=== PATIENT | female | born 1990 | race Caucasian/White ===

== ENCOUNTER 2019-07-17 10:17 | Emergency (ER) | payer OTHER, SELFPAY ==
--- NOTE | ~2019-07-17 | CT_ITS ---
EXAMINATION: CT abdomen pelvis w con DATE: 07/17/2019 13:25 INDICATION: Abdominal pain. TECHNIQUE: Computed tomography (CT) of the abdomen and pelvis was performed with 100 mm Omnipaque 350 intravenous contrast. Automated exposure control and iterative reconstruction technique were employe d. The dose-length product was 1844.24 mGy-cm. COMPARISON: None. FINDINGS: The visualized portions of the lung bases demonstrate minimal atelectasis. No pleural effus ion. The heart size is normal. No pericardial effusion. The liver, gallbladder, spleen, pancreas, adr enal glands, and kidneys are normal. There is no urolithiasis. There are no dilated loops of bowel. T he appendix is normal. There are no pathologically enlarged lymph nodes. There is no free intraperito guillermo fluid. There is mild thoracic spondylosis. IMPRESSION: 1. No etiology for the patient's symptoms. Reviewed, dictated and finalized at location A. [employer]
[2019-07-17 10:21] VITALS: BP 126/72; PULSE 80; RESP 19; TEMP 36.4; O2SAT 100
--- NOTE | 2019-07-17 10:36 | ED.GIBLEED ---
HPI - GI Bleed General Chief complaint: GI Bleed Stated complaint: Hemroid Time Seen by Provider: 07/17/19 10:33 Source: patient and RN notes reviewed Mode of arrival: ambulatory Limitations: no limitations History of Present Illness HPI Narrative: A 29 y/o female presents to the ED with dark rectal bleeding beginning yesterday morning. She reports associated severe rectal pain, lower ABD pain, and lower back pain. She notes that she was constipated yesterday so she took some laxatives and stool softeners, and shortly after she had a dark BM and acutely developed rectal pain, lower ABD pain, and lower back pain. She denies anything alleviating or aggravating her symptoms. She also denies any fevers, chills, N/V, dysuria, hematuria, urinary frequency, or urinary retention. complaint: melena Onset (ago): day(s) (yesterday) Relieving factors: none Exacerbating factors: none Associated symptoms: abdominal pain (lower) and other (rectal pain, lower back pain, and constipation (resolved)) Treatments Prior to Arrival: none Related Data Allergies Allergy/AdvReac Type Severity Reaction Status Date / Time No Known Allergies Allergy Mild Verified 07/17/19 10:23 Review of Systems Review of Systems: All systems reviewed & are unremarkable except as noted in HPI and below Constitutional: Constitutional: Denies chills and Denies fever(s) Gastrointestinal: Gastrointestinal: Reports abdominal pain (lower), Reports melena, Reports constipation (resolved), Denies nausea, Denies vomiting and Reports other (rectal pain) Genitourinary: Genitourinary: Denies hematuria, Denies nocturia, Denies dysuria and Denies other (urinary retention) Musculoskeletal: Musculoskeletal: Reports back pain (lower) PMFSH Past Medical History Medical History (Updated 07/17/19 @ 14:03 by Rickie Rivera MD) Healthy female Surgical History Surgical History (Updated 07/17/19 @ 11:39 by Troy Strong) No history of previous surgery Social History Social History (Updated 07/17/19 @ 11:39 by Troy Strong) Smoking status: Unknown if ever smoked Gender identity (if verbalized by the patient): Female Exam Const: General: healthy appearing and no acute distress Nutritional Appearance: well nourished HENMT: Mouth: Yes lip normal and Yes moist mucous membranes Eyes: Conjunctivae: conjunctivae normal Pupils: Equal, round and reactive pupils present Resp: Effort & Inspection: normal respiratory effort Auscultation: clear to auscultation bilaterally Cardio: Rate: regular rate Rhythm: regular rhythm Heart sounds: no murmurs GI: Inspection: non-distended GI Palp: Yes Tenderness to palpation present (GI) (RLQ) Auscultation: normal bowel sounds Rectal Exam: No External hemorrhoid(s) present, No Anal fissure(s) present and other (rectal tenderness no erythema or induration) Back/Spine/Pelvis: Other: Full ROM. Skin: General skin exam: normal color, dry skin and other (warm) Neuro: General: patient oriented x3 (alert) Speech: normal speech Extrem: General: full ROM Psych: Mental Status: mental status grossly normal Affect: normal affect Course Vital Signs Vital signs: Vital Signs Temperature 36.4 C L 07/17/19 10:21 Pulse Rate 80 07/17/19 10:21 Respiratory Rate 19 07/17/19 10:21 Blood Pressure 126/72 07/17/19 10:21 Pulse Oximetry 100 07/17/19 10:21 Temperature 36.4 C L 07/17/19 10:21 Pulse Rate 63 07/17/19 14:57 Respiratory Rate 18 07/17/19 14:57 Blood Pressure 127/69 07/17/19 14:57 Pulse Oximetry 97 07/17/19 14:57 MDM - GI Bleed MDM Narrative Medical decision making narrative: Exam normal. No abscess or other pathology on CT. Unclear what her etiology is. Feeling better prior to discharge. Differential Diagnosis Differential diagnosis: Likely hemorrhoids, anal fissure and other (perirectal abscess) Medical Records Attestation: I reviewed the patient's medical records. Lab Data Attestation: I revi
[2019-07-17 11:07] LABS: Basophils Percent Auto 0.5 % (0.2-1.2); Eosinophils Absolute Auto 0.3 K/mm3 (0-0.3); Eosinophils Percent Auto 4.1 % (0-4.4); Hematocrit 36.4 % (37.0-47.0); Hemoglobin 11.8 g/dL (12.0-15.0); Immature Granulocyte Absolute 0.03 K/mm3 (0.00-0.031); Immature Granulocyte Percent A 0.4 % (0-0.5); Lymphocytes Absolute Auto 1.33 K/mm3 (0.9-3.2); Lymphocytes Percent Auto 16.5 % (18.3-44.2); Mean Corpuscular HGB Conc 32.4 g/dl (32-36); Mean Corpuscular Hemoglobin 28.9 pg (26-34); Mean Corpuscular Volume 89.2 fl (80-100); Mean Platelet Volume 10.7 fl (7.4-10.4); Monocytes Absolute Auto 0.4 K/mm3 (0.1-0.6); Monocytes Percent Auto 5.2 % (2.6-8.5); Neutrophils Absolute Auto 5.9 K/mm3 (1.3-6.7); Neutrophils Percent Auto 73.3 % (45.5-73.1); Platelet Count Result 248 k/mm3 (150-375); Red Blood Count 4.08 M/mm3 (4.2-5.4); Red Cell Distribution Width 13.8 % (11.5-14.5); White Blood Count 8.1 K/mm3 (4.5-10.0)
[2019-07-17] MEDS: MORPHINE SULFATE 4 MG/ML INJ 2 MG IV PUSH (11:16)
[2019-07-17 11:20] LABS: Alanine Aminotransferase 25 U/L (4-35); Albumin Level 4.1 g/dL (3.5-5.1); Alkaline Phosphatase 58 U/L (38-126); Aspartate Amino Transferase 33 U/L (14-36); Bilirubin,Total 0.8 mg/dL (0.2-1.3); Blood Urea Nitrogen 8 mg/dL (7-17); Calcium 8.9 mg/dL (8.4-10.2); Carbon Dioxide 29 mmol/L (22-30); Chloride 103 mmol/L (98-107); Estimated Glomerular Filt Rate > 60; Glucose 107 mg/dL (65-105); Lipase 23 U/L (23-300); Potassium 3.9 mmol/L (3.4-5.0); Sodium 136 mmol/L (137-145)
[2019-07-17 11:24] LABS: Prothrombin Time 12.8 Seconds (11.1-14.7)
[2019-07-17 11:25] LABS: Partial Thromboplastin Time 26.5 SECONDS (22.3-36.8)
[2019-07-17 11:58] VITALS: BP 116/81; PULSE 68; RESP 16; O2SAT 98
[2019-07-17 12:25] LABS: Add Urine Microscopic? YES; Appearance Urine Clear (Clear); Bacteria Urine Trace /hpf; Bilirubin Urine Negative (Negative); Blood Urine Negative (Negative); Color Urine Straw (Yellow); Glucose Urine UA Negative (Negative); Ketones Urine Trace mg/dL (Negative); Leukocyte Esterase Ur 1+ LEU/UL (Negative); Mucus Urine Rare /lpf; Nitrate Urine Negative (Negative); Protein Urine Negative (Negative); RBC Urine 0-2 /hpf (0-2); Specific Grav Ur 1.009 (1.001-1.035); Squamous Epithelial Cell Urine Many /hpf (Few); Urobilinogen Urine Negative mg/dL (<2.0)
[2019-07-17 14:57] VITALS: BP 127/69; PULSE 63; RESP 18; O2SAT 97
== END 2019-07-17 14:59 | disposition home or self-care (01) ==
PROVIDERS: Emergency Provider Emergency Medicine
DX: K62.89 Other specified diseases of anus and rectum (principal)
CPT/HCPCS: 36415; 74177; 80053; 81001; 81025; 83690; 85025; 85610; 85730; 87086; 87088; 96374; 99284; J2270; Q9967

== ENCOUNTER 2019-10-10 00:35 | Observation (INO) | payer OTHER, SELFPAY ==
--- NOTE | ~2019-10-10 | CT_ITS ---
EXAMINATION: CT brain wo con DATE: 10/10/2019 03:37 INDICATION: Unresponsive. Drug overdose. TECHNIQUE: Computed tomography (CT) of the head was performed without intravenous contrast. The mA wa s adjusted according to patient size. Iterative reconstruction technique was employed. The dose-lengt h product was 529.67 mGy-cm. COMPARISON: None FINDINGS: There is no intracranial hemorrhage, acute infarction, or abnormal intracranial mass lesion . The ventricles are normal in size. There is mild mucosal thickening in the paranasal sinuses. The m astoid air cells are normal. The orbits are normal. IMPRESSION: 1. Normal brain. Reviewed, dictated and finalized at location A. IMPRESSION: 1. Normal brain.
[2019-10-10 00:35] VITALS: BP 104/60; PULSE 120; RESP 22; TEMP 36.1; O2SAT 98
[2019-10-10 00:45] VITALS: RESP 20
--- NOTE | 2019-10-10 00:52 | ED.OVERDOSE ---
HPI - Overdose General Chief Complaint: Overdose Stated Complaint: WITHDRAWL Source: patient and family (boyfriend) Mode of arrival: wheelchair Limitations: altered mental status History of Present Illness HPI Narrative: Pt. given Narcan after sniffing fentanyl and becoming unresponsive. Since then she has periodic bouts of agitation, asking for relief. Pt. states she uses fentanyl regularly. Related Data Home Medications Medication Instructions Recorded Confirmed amitriptyline 50 mg PO HS 10/10/19 10/10/19 atorvastatin 20 mg PO DAILY 10/10/19 10/10/19 citalopram 20 mg PO DAILY 10/10/19 10/10/19 desog-e.estradiol/e.estradiol 1 tablet PO DAILY 10/10/19 10/10/19 [Yamilka (28)] sumatriptan succinate 100 mg PO DAILY 10/10/19 10/10/19 Allergies Allergy/AdvReac Type Severity Reaction Status Date / Time No Known Allergies Allergy Mild Verified 07/17/19 10:23 Review of Systems Review of Systems: ROS unobtainable: Yes unobtainable due to medical condition (pt too adgitated to answer questions. ) Constitutional: Constitutional: Denies chills and Denies fever(s) [facility] Past Medical History Medical History (Updated 10/10/19 @ 03:50 by Sukhjinder Olguin MD) Healthy female Surgical History Surgical History (Updated 07/17/19 @ 11:39 by Troy Strong) No history of previous surgery Social History Social History (Updated 07/17/19 @ 11:39 by Troy Strong) Smoking status: Unknown if ever smoked Gender identity (if verbalized by the patient): Female Exam Narrative: Exam Narrative: Alert, knows she's at [place]. At one minute she is laying quitely, then every 1 minute or so she sits up, or her body jerks, she moans at times, squirms, asks nurse to hurry up, states I hate it . No shivering; asking for a blanket. Const: Orientation/consciousness: patient oriented x3 HENMT: Head: normal to inspection Face and sinus: normal facial exam Eyes: Conjunctivae: conjunctivae normal Pupils: Equal, round and reactive pupils present EOM: EOMs intact bilaterally Neck: Neck: no lymphadenopathy Chest: Chest palpation & inspection: normal inspection of the chest Resp: Effort & Inspection: normal respiratory effort Auscultation: clear to auscultation bilaterally Cardio: Rate: tachycardic Rhythm: regular rhythm GI: GI Palp: Yes Soft to palpation Other: nontender : General: Yes no CVA tenderness Skin: General skin exam: normal color Other: no track goff diaphoretic Neuro: General: patient oriented x3 Extrem: General: normal to inspection and no edema Course Course Emergency Course: Pt. given lorazepam 1 mg doses until symptoms stopped. AT 1:20 pt. sleeping after receiving 3 mg of lorazepam IV. At responding only painful stimulus around 2:50 per nurse. Examined by me at 3:10. 117/m9, pulse 104, sinus tachycardia. . RR 16, pulse ox. 96% on room air. Pt. has purposeful movement at times, e.g turning on the cart. Does not respond to oral or painful stimuli. Does not open eyes, withdraw, localize or verbalize. At 3:45 eyes open to voice command, follows instructions, knows she's in the hospital, month of , age and she lives in [place]. GCS = 14. Pupils 5 mm. Reactive. Will admit for observation. Pt's decrease LOC at this point likely related to Ativan. Will tx. hypokalemia with IV KCL. Vital Signs Vital signs: Vital Signs Temperature 36.1 C L 10/10/19 00:35 Pulse Rate 120 H 10/10/19 00:35 Respiratory Rate 22 H 10/10/19 00:35 Blood Pressure 104/60 10/10/19 00:35 Pulse Oximetry 98 10/10/19 00:35 Temperature 36.1 C L 10/10/19 00:35 Pulse Rate 103 H 10/10/19 03:47 Respiratory Rate 18 10/10/19 03:47 Blood Pressure 105/60 10/10/19 03:47 Pulse Oximetry 96 10/10/19 03:47 MDM - Overdose Lab Data Lab results narrative: urine drug screen positive for amphetamines and cannabinoids. Result diagrams: 10/10/19 01:10 10/10/19 01:10 Labs: Jaye
[2019-10-10] MEDS: LORAZEPAM INJ 2 MG/ML VIAL 1 MG IV PUSH ×3 (00:59→01:10)
[2019-10-10 01:19] LABS: Basophils Absolute Auto 0.05 K/mm3 (0.00-0.10); Basophils Percent Auto 0.6 % (0.0-1.0); Eosinophils Absolute Auto 0.64 K/mm3 (0.02-0.50); Eosinophils Percent Auto 7.1 % (1.0-6.0); Hematocrit 36.9 % (35.0-49.0); Hemoglobin 12.4 g/dL (12.0-15.0); Immature Granulocyte Absolute 0.02 K/mm3 (0.00-0.00); Immature Granulocyte Percent A 0.2 % (0.0-0.0); Lymphocytes Absolute Auto 4.11 K/mm3 (1.10-4.50); Lymphocytes Percent Auto 45.3 % (18.0-42.0); Mean Corpuscular HGB Conc 33.6 g/dL (32.0-36.0); Mean Corpuscular Hemoglobin 28.8 pg (27.0-31.0); Mean Corpuscular Volume 85.8 fL (78.0-102.0); Mean Platelet Volume 10.4 fl (9.2-11.8); Monocytes Absolute Auto 0.89 K/mm3 (0.10-0.90); Monocytes Percent Auto 9.8 % (2.0-11.0); Neutrophils Absolute Auto 3.4 K/mm3 (1.7-7.2); Platelet Count Result 256 K/mm3 (150-420); Red Cell Distribution Width 13.3 % (11.6-14.4); White Blood Count 9.1 K/mm3 (4.8-10.8)
[2019-10-10] MEDS: LACTATED RINGERS 1,000 ML 999 ML IV CONT (01:29)
[2019-10-10 01:37] LABS: Alanine Aminotransferase 16 U/L (14-59); Albumin Level 3.9 g/dL (3.4-5.0); Alkaline Phosphatase 64 U/L (46-116); Anion Gap 17.1 mmol/L (7-16); Aspartate Amino Transferase 18 U/L (15-37); Bilirubin,Total 0.6 mg/dL (0.00-1.00); Blood Urea Nitrogen 8 mg/dL (7-18); Calcium 9.7 mg/dL (8.5-10.1); Carbon Dioxide 24 mmol/L (21-32); Chloride 103 mmol/L (98-108); Estimated CRCL calculation 98 ml/min; Estimated Glomerular Filt Rate > 60; Glucose 93 mg/dL (70-99); Osmolality Calculated 290 mOsm/kg (285-295); Potassium 3.1 mmol/L (3.5-5.1); Sodium 141 mmol/L (136-145); Total Protein 7.2 g/dL (6.4-8.2)
[2019-10-10 02:21] LABS: Beta HCG Quantitative < 1.00 mIU/mL (0-6)
--- NOTE | 2019-10-10 02:21 | ECG_ITS ---
Measurements Intervals [place] Rate: 111 P: 63 DE: 147 QRS: 70 QRSD: 82 T: 49 QT: 359 QTc: 489 Interpretive Statements SINUS TACHYCARDIA NONSPECIFIC T-WAVE ABNORMALITY- ANT/INF LEADS ABNORMAL ECG Electronically Signed On 10-10-2019 8:46:11 CDT by Sergio Kim D.O.
[2019-10-10 02:47] LABS: Amphetamine Screen Urine Positive (Negative); Barbiturate Screen Urine Negative (Negative); Benzodiazepines Screen Urine Negative (Negative); Cannabinoid Screen Urine Positive (Negative); Cocaine Screen Urine Negative (Negative); Methadone Screen Urine Negative (Negative); Opiate Screen Urine Negative (Negative); Phencyclidine Screen Urine Negative (Negative)
[2019-10-10 02:55] LABS: Troponin I < 0.02 ng/mL (0.00-0.056)
--- NOTE | 2019-10-10 02:56 | PC.NURSE ---
Pt. sleeping, remains sedated and responds to painful stimuli. Monitor shows S-Tach, HR 117, BP 101/55, Spo2 96% on RA.
--- NOTE | 2019-10-10 03:37 | PC.NURSE ---
Call placed to [facility], will await call back from hospitalist.
--- NOTE | 2019-10-10 03:43 | PC.NURSE ---
Pt. more alert p Head CT and awakens eyes to voice and able to ANSWER questions when prompted, VSS, call back to Shaq at [facility] to cancel page to hospitalist. ERP decision to admit pt. here for obs.
[2019-10-10 03:47] VITALS: BP 105/60; PULSE 103; RESP 18; O2SAT 96
[2019-10-10 04:00] VITALS: BP 102/62; BP 117/81; PULSE 100; PULSE 105; PULSE 95; RESP 18; RESP 20; TEMP 36.2; TEMP 36.4; O2SAT 95; O2SAT 97
[2019-10-10] MEDS: KCL 20MEQ/0.9% SOD CHL 1,000 ML 125 ML IV CONT (04:39)
--- NOTE | 2019-10-10 05:17 | PC.NURSE ---
Patient arrived from ER via gurney. Required 3 to transfer to bed. speech garbled and unintelligible. Patient rouses to light pain. Urinary cath put in place in ER. Draining dark yellow urine with sediment. Sitter at bedside
[2019-10-10 05:34] VITALS: BMI 33.7
--- NOTE | 2019-10-10 07:10 | PC.NURSE ---
Patient sleeping. Awakes to verbal stimuli. No s/s distress noted or stated.
[2019-10-10 08:00] VITALS: BP 143/71; PULSE 77; PULSE 90; RESP 18; TEMP 36.5; O2SAT 97
--- NOTE | 2019-10-10 08:15 | PC.NURSE ---
Patient sleepy. Responds to verbat stimuli. No s/s stress noted or stated.
[2019-10-10 08:52] LABS: Add Urine Microscopic? YES; Appearance Urine Clear (Clear); Bilirubin Urine 1+ (Negative); Blood Urine 2+ (Negative); Color Urine Yellow (Yellow); Glucose Urine UA Negative (Negative); Ketones Urine 3+ (Negative); Leukocyte Esterase Ur Negative (Negative); Nitrate Urine Negative (Negative); Protein Urine 1+ (Negative); Specific Grav Ur 1.025 (1.010-1.020); pH Urine 6.5 (5.0-8.0)
[2019-10-10 08:59] LABS: Bacteria Urine Trace /hpf; Mucus Urine Moderate /lpf; Squamous Epithelial Cell Urine Few /hpf (Few); WBC Urine 0-3 /hpf (0-3)
--- NOTE | 2019-10-10 09:20 | PC.NURSE ---
Patient awake, tearful at what she had done. No s/s distress noted or stated.
[2019-10-10 09:41] LABS: Potassium 4.1 mmol/L (3.5-5.1)
--- NOTE | 2019-10-10 10:15 | PC.NURSE ---
Patient returned to baseline.
--- NOTE | 2019-10-10 10:28 | PM.SD ---
Same Day Admit/Disch: HPI History of Present Illness Chief complaint: fentanyl overdose Narrative: Dione Cortes is a 29 year old female That presented to the ED status post drug overdose. patient has a past medical history of migraines, hyperlipidemia and depression. according to patient she was with her boyfriend yesterday indulging and illegal drugs, she believed was using coby (ecstasy). The last thing she remembers was sniffing the powder substance and passing out. patient did test positive for methamphetamine. she noted that later she found out that she had used ice( methamphetamine). she also noted that she currently feels funny, and does not like feeling this way. I informed her that EMS gave her narcan and that removed the opioids out of her system. patient notes that she does not have an addiction problem she only uses cocaine and marijuana, she noted that her boyfriend has the methamphetamine addiction. at this time she denies any homicidal or suicidal ideations. while in the ED patient was agitated post narcan and was given Ativan. Her troponin, CT of the head were both negative her EKG did indicate sinus tach and her drug screen indicated methamphetamines and cannabis. Her potassium level was also low she was given a K rider. her potassium on discharge is within normal limits. vital signs 43/71, 77, 18, 97.7, 97% on room air. she will discharge today. case coordination was consulted today and addressed patient's drug addiction. Patient denies SOB, CP, palpitation, extremity numbness, lightheadness, dizziness, constipation, diarrhea, chills or fever. Patient agree that they are ready for discharge and discharge plan. [facility] Past Medical History Medical History (Updated 10/10/19 @ 11:30 by KEITH Plaza) Depression Healthy female HLD (hyperlipidemia) Migraine Substance abuse Surgical History Surgical History (Updated 07/17/19 @ 11:39 by Troy Strong) No history of previous surgery Social History Social History (Updated 07/17/19 @ 11:39 by Troy Strong) Smoking status: Unknown if ever smoked Alcohol intake: unknown Substance use: unknown Substance use type: marijuana, amphetamines and opiates Gender identity (if verbalized by the patient): Female Same Day Admit/Disch: Med Pre-admit Medications Home Medications Medication Instructions Recorded Confirmed Type amitriptyline 50 mg PO HS 10/10/19 10/10/19 History atorvastatin 20 mg PO DAILY 10/10/19 10/10/19 History citalopram 20 mg PO DAILY 10/10/19 10/10/19 History desog-e.estradiol/e.estradiol 1 tablet PO DAILY 10/10/19 10/10/19 History [Yamilka (28)] lorazepam 1 mg PO Q4HR PRN #5 tablet 10/10/19 Rx sumatriptan succinate 100 mg PO DAILY 10/10/19 10/10/19 History Exam Narrative: Exam Narrative: General: A well-developed, well-nourished male sitting up in bed no acute distress. HEENT: Normocephalic, atraumatic. PERRL, EOMI. Sclerae anicteric. Oral mucosa moist. Oropharynx clear. Neck: Supple. Respiratory: Lungs are clear to auscultation bilaterally. Cardiovascular: Regular rate and rhythm with S1-S2. Gastrointestinal: Abdomen is soft, nontender, and nondistended with positive bowel sounds. No organomegaly. Skin: Warm, dry, and slightly pale.. No rash or lesions on limited exam. Extremities: No cyanosis, clubbing, or edema. Radial and pedal pulses intact. Neurological: Alert. Cranial nerves 2-12 are grossly intact. No gross focal deficits to casual conversation. Psychiatric: Pleasant and cooperative with normal mood and affect. Judgment and insight intact. DS: Data Data Completed and Pending Labs on day of discharge: Labs from last 24 hours 10/10/19 10/10/19 10/10/19 09:26 08:43 02:31 WBC RBC Hgb Hct MCV MCH MCHC RDW Plt Count MPV Immature Gran % (Auto) Neut % (Auto) Lymph % (Auto) [place] % (Auto) Eos % (Auto) Baso % (Auto) Lymph # (Auto)
--- NOTE | 2019-10-10 12:40 | PC.NURSE ---
Patient awaiting discharge. Baseline
--- NOTE | 2019-10-10 20:43 | PM.EVENT ---
Event Note Event Note Event Note: Patient states that she feels better today. She denies any pain, shortness of breath or nausea. She denies abdominal pain. Agitation resolved overnight. Alert and oriented, mucous membranes moist without lesion. Extremities are warm dry pink. Regular in rhythm without murmur or gallop. Lungs are clear to auscultation bilaterally without increased work of breathing. no edema or rash. Abdomen is soft and nontender. Home today. Will obtain urine culture if it has not been obtained already. No treatment as she had as patient is asymptomatic. hypokalemia has resolved. I have reviewed the chart and examined the patient. I discussed the patient's care with Allegra Salgado APN and agree with her assessment and plan.
== END 2019-10-10 12:00 | disposition home or self-care (01) ==
LOC: CHSED 03:49 → CHS2ND 03:58
PROVIDERS: Nurse Practitioner; Admitting Provider Family Medicine; Emergency Provider Family Medicine; Visit Provider Family Medicine
DX: T40.4X2A Poisoning by other synthetic narcotics, intentional self-harm, initial encounter (principal); E87.6 Hypokalemia; F19.10 Other psychoactive substance abuse, uncomplicated; E78.5 Hyperlipidemia, unspecified; F32.9 Major depressive disorder, single episode, unspecified; G43.909 Migraine, unspecified, not intractable, without status migrainosus
CPT/HCPCS: 36415; 70450; 80053; 80307; 81001; 84132; 84484; 84702; 85025; 93005; 96361; 96365; 96366; 96375; 99283; 99285; G0378; G0379; J2060; J3480; J7120

== ENCOUNTER 2021-11-16 23:38 | Emergency (ER) | payer OTHER, SELFPAY ==
[2021-11-16 23:54] VITALS: BP 108/66; PULSE 106; RESP 16; TEMP 37.1; O2SAT 100
--- NOTE | 2021-11-17 02:19 | PC.NURSE ---
Pt to triage desk reporting she wants to go to a different hospital because she is tired of waiting. Pt A&Ox4 and in no acute distress on leaving. Pt encouraged to return at any time.
== END 2021-11-17 02:28 | disposition left against medical advice (07) ==
LOC: ANHED 11-17 02:24
DX: M54.2 Cervicalgia (principal)
CPT/HCPCS: 99199

== ENCOUNTER 2023-03-02 08:24 | Emergency (ER) | payer OTHER, SELFPAY ==
--- NOTE | ~2023-03-02 | XR_ITS ---
XR foot LT min 3V DATE: 03/02/2023 08:51 INDICATION: Injury. Pain at the base of the fourth and fifth metatarsal area TECHNIQUE: 5 views COMPARISON: None FINDINGS: There is a nondisplaced linear intra-articular fracture of the base of the fifth metatarsal bone. There is mild osteoarthritis at the first metatarsophalangeal joint. Prominent plantar and mild posterior calcaneal enthesopathy and some distal Achilles tendon calcifica tion are noted. IMPRESSION: Linear nondisplaced intra-articular fracture of the base of the fifth metatarsal bone Reviewed, dictated and finalized at location L. IMPRESSION: Linear nondisplaced intra-articular fracture of the base of the fif th metatarsal bone
[2023-03-02 08:27] VITALS: BP 130/85; PULSE 108; RESP 16; TEMP 36.3; O2SAT 100
--- NOTE | 2023-03-02 09:03 | ED.GENADULT ---
HPI - General Adult General Chief complaint: Extremity Injury, Lower Stated complaint: Foot injury Time Seen by Provider: 03/02/23 08:35 History of Present Illness HPI narrative: Patient is a 32-year-old female who presents ER with pain to the left foot. She was playing with her niece last night when she suffered an inversion injury to the foot/ankle. Sudden onset pain. Unable to bear weight. Has bruising over the dorsum of the foot. No numbness or tingling. No additional injury. Related Data Home Medications Medication Instructions Recorded Confirmed amitriptyline 50 mg tablet 50 mg PO HS 10/10/19 10/10/19 atorvastatin 20 mg tablet 20 mg PO DAILY 10/10/19 10/10/19 citalopram 20 mg tablet 20 mg PO DAILY 10/10/19 10/10/19 desogestrel-e.estradiol 0.15 1 tablet PO DAILY 10/10/19 10/10/19 mg-0.02 mg(21)/e.estrad 0.01 mg(5) tablet (Yamilka (28)) sumatriptan succinate 100 mg tablet 100 mg PO DAILY 10/10/19 10/10/19 Allergies Allergy/AdvReac Type Severity Reaction Status Date / Time No Known Allergies Allergy Mild Verified 03/02/23 08:54 Review of Systems Musculoskeletal: Musculoskeletal: Reports arthralgias, Denies joint swelling and Denies muscle cramps Integumentary/Breasts: Skin/Breast: Denies erythema and Denies rash Comments: Left foot bruising Neurologic: Denies focal weakness and Denies numbness PMFSH Past Medical History Medical History (Updated 03/02/23 @ 09:06 by Amol Culp MD) Depression Healthy female HLD (hyperlipidemia) Migraine Substance abuse Surgical History Surgical History (Updated 07/17/19 @ 11:39 by Troy Strong) No history of previous surgery Social History Social History (Updated 07/17/19 @ 11:39 by Troy Strong) Smoking status: Unknown if ever smoked Alcohol intake: unknown Substance use: unknown Substance use type: marijuana, amphetamines and opiates Gender identity (if verbalized by the patient): Female Exam Narrative: GENERAL: Well-appearing, well-nourished, and in no acute distress. HEAD: Normocephalic, atraumatic. HEART: Regular rate and rhythm. Normal peripheral pulses. EXTREMITIES: Normal range of motion. Tender palpation left foot at the base of the fifth metatarsal with surrounding bruising. Neurovascular intact. SKIN: Warm, dry, no rash. NEURO: Alert and oriented x3. PSYCH: Normal mood and affect. Course Course Emergency Course: Patient resting comfortably. Informed of results. Discussed treatment with postop shoe and nonweightbearing with crutches. Recommend follow-up with orthopedic surgery. Vital Signs Vital signs: Vital Signs Temperature 97.4 F L 03/02/23 08:27 Pulse Rate 108 H 03/02/23 08:27 Respiratory Rate 16 03/02/23 08:27 Blood Pressure 130/85 03/02/23 08:27 Pulse Oximetry 100 03/02/23 08:27 Oxygen Delivery Room Air 03/02/23 08:27 Temperature 97.4 F L 03/02/23 08:27 Pulse Rate 108 H 03/02/23 08:27 Respiratory Rate 16 03/02/23 08:27 Blood Pressure 130/85 03/02/23 08:27 Pulse Oximetry 100 03/02/23 08:27 Oxygen Delivery Room Air 03/02/23 08:27 Medical Decision Making Vital Signs Vital Signs: Vital Signs Temperature 97.4 F L 03/02/23 08:27 Pulse Rate 108 H 03/02/23 08:27 Respiratory Rate 16 03/02/23 08:27 Blood Pressure 130/85 03/02/23 08:27 Pulse Oximetry 100 03/02/23 08:27 Oxygen Delivery Room Air 03/02/23 08:27 Temperature 97.4 F L 03/02/23 08:27 Pulse Rate 108 H 03/02/23 08:27 Respiratory Rate 16 03/02/23 08:27 Blood Pressure 130/85 03/02/23 08:27 Pulse Oximetry 100 03/02/23 08:27 Oxygen Delivery Room Air 03/02/23 08:27 Imaging Data Radiologist's impression: ITS Impressions Foot X-Ray 03/02/23 08:53 IMPRESSION: Linear nondisplaced intra-articular fracture of the base of the fifth metatarsal bone Discharge Plan Discharge Clinical Impression: Fracture of base of fifth metatarsal
--- NOTE | 2023-03-11 07:55 | PC.NURSE ---
Late entry for error correction. Wound assessment on 03/02/23 at 0830 should state left foot not right foot
--- NOTE | 2023-03-11 07:58 | PC.NURSE ---
LATE ENTRY. PT ON 03/02/2023 HAD INJURY TO LEFT FOOT AND THE POST OP SHOE WAS PLACED TO THAT FOOT.
--- NOTE | 2023-03-11 08:00 | PC.NURSE ---
LATE ENTRY. PMS WAS INTACT TO LEFT FOOT
== END 2023-03-02 09:20 | disposition home or self-care (01) ==
PROVIDERS: Emergency Provider Emergency Medicine
DX: S92.355A Nondisplaced fracture of fifth metatarsal bone, left foot, initial encounter for closed fracture (principal); E78.5 Hyperlipidemia, unspecified; F32.A Depression, unspecified; X50.9XXA Other and unspecified overexertion or strenuous movements or postures, initial encounter
CPT/HCPCS: 73630; 99284

== ENCOUNTER 2023-05-15 14:45 | Emergency (ER) | payer OTHER, SELFPAY ==
--- NOTE | ~2023-05-15 | XR_ITS ---
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 RESULT: Lines, tubes, and devices: None. Lungs and pleura: Mild scattered reticulonodular opacities. Cardiomediastinal silhouette: Stable. Other: No acute osseous or upper abdominal finding. IMPRESSION: Pulmonary opacities may represent respiratory vasculitis in the appropriate clinical context. Reviewed, dictated and finalized at location K. STONE SPLITTER IMPRESSION: Pulmonary opacities may represent respiratory vasculitis in the appropriate cli nical context.
[2023-05-15 14:54] VITALS: BP 128/84; PULSE 82; RESP 15; TEMP 36.5; O2SAT 99
[2023-05-15 15:39] LABS: Influenza A QL RT-PCR Positive (Negative); Influenza B QL RT-PCR Negative (Negative); RSV RNA, RT-PCR Negative (Negative); SARS-CoV-2 RNA PCR Negative (Negative)
--- NOTE | 2023-05-15 15:42 | ED.GENADULT ---
HPI - General Adult General Chief complaint: Upper Respiratory Infection Stated complaint: FEVER, CONGESTION, DIARRHEA, NAUSEA Time Seen by Provider: 05/15/23 15:13 History of Present Illness HPI narrative: 32-year-old female presented to the emergency department for evaluation of nausea without vomiting body aches and fever this started on . Patient states that her sister does have influenza and patient began developing symptoms on . 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 Related Data Home Medications Medication Instructions Recorded Confirmed amitriptyline 50 mg tablet 50 mg PO HS 10/10/19 03/05/23 atorvastatin 20 mg tablet 20 mg PO DAILY 10/10/19 03/05/23 citalopram 20 mg tablet 20 mg PO DAILY 10/10/19 03/05/23 desogestrel-e.estradiol 0.15 1 tablet PO DAILY 10/10/19 03/05/23 mg-0.02 mg(21)/e.estrad 0.01 mg(5) tablet (Yamilka (28)) sumatriptan succinate 100 mg tablet 100 mg PO DAILY 10/10/19 03/05/23 Allergies Allergy/AdvReac Type Severity Reaction Status Date / Time No Known Allergies Allergy Mild Verified 03/05/23 11:06 Review of Systems Review of Systems: All systems reviewed & are unremarkable except as noted in HPI and below PMFSH Past Medical History Medical History Depression Healthy female HLD (hyperlipidemia) Migraine Substance abuse Surgical History Surgical History No history of previous surgery Social History Social History (Updated 03/05/23 @ 11:07 by Nohemy Stark MA) Smoking status: Former smoker Substance use: unknown Substance use type: marijuana, amphetamines and opiates Living arrangements: with family Occupation/Education: occupation 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 HEAD: normocephalic, atraumatic. EYES: PERRLA/EOMI, conjunctivae clear. NOSE: Normal no drainage EARS:TMS clear with good light reflex. THROAT: Pharynx clear, no exudate. NECK: Supple. No adenopathy, no masses. RESPIRATORY: Airway patent, respirations nonlabored. Clear to auscultation bilaterally, no rales, rhonchi, wheezing. CARDIOVASCULAR: Regular rate and rhythm without murmurs rubs or gallops. ABDOMINAL: Soft, nontender, nondistended, normal bowel sounds MUSCULOSKELETAL: Moves all extremities. Strength/ROM intact, No edema, No calf tenderness. NEURO: Alert. Cranial nerves II through XII intact. Grossly intact SKIN: Warm, dry. Normal Color Course Course Emergency Course: 32-year-old female presenting to the emergency department for evaluation flu-like symptoms. Patient was positive for influenza A. Patient was updated on the results of the workup and plan for treatment at home. Patient also educated on reasons to return to the emergency room. All questions and concerns were addressed. Vital Signs Vital signs: Vital Signs Temperature 97.7 F 05/15/23 14:54 Pulse Rate 82 05/15/23 14:54 Respiratory Rate 15 05/15/23 14:54 Blood Pressure 128/84 05/15/23 14:54 Pulse Oximetry 99 05/15/23 14:54 Oxygen Delivery Room Air 05/15/23 14:54 Temperature 97.7 F 05/15/23 14:54 Pulse Rate 85 05/15/23 16:23 Respiratory Rate 18 05/15/23 16:23 Blood Pressure 152/90 H 05/15/23 16:23 Pulse Oximetry 100 05/15/23 16:23 Oxygen Delivery Room Air 05/15/23 15:27 Medical Decision Making Differential Diagnosis Differential Diagnosis: Influenza, RSV, COVID, viral syndrome, pneumonia Vital Signs Vital Signs: Vital Signs Temperature 97.7 F 05/15/23 14:54 Pulse Rate 82 05/15/23 14:54 Respiratory Rate 15 05/15/23 14:54 Blood Pressure 128/84 05/15/23 14:54 Pulse Oximetry 99 12
[2023-05-15 16:23] VITALS: BP 152/90; PULSE 85; RESP 18; O2SAT 100
== END 2023-05-15 16:24 | disposition home or self-care (01) ==
PROVIDERS: Emergency Provider Emergency Medicine
DX: J10.1 Influenza due to other identified influenza virus with other respiratory manifestations (principal); E78.5 Hyperlipidemia, unspecified; F32.A Depression, unspecified; F12.90 Cannabis use, unspecified, uncomplicated; F11.90 Opioid use, unspecified, uncomplicated; F15.90 Other stimulant use, unspecified, uncomplicated; Z20.822 Contact with and (suspected) exposure to COVID-19
CPT/HCPCS: 71045; 87637; 99283

== ENCOUNTER 2023-09-12 14:06 | Emergency (ER) | payer SELFPAY ==
--- NOTE | ~2023-09-12 | XR_ITS ---
EXAMINATION: XR chest 1V DATE: 09/12/2023 15:01 INDICATION: Right upper extremity pain. TECHNIQUE: A single frontal view of the chest was obtained. COMPARISON: Chest single view 05/15/2023 FINDINGS: There is no pneumonia, pleural effusion or pneumothorax. The heart size is normal. IMPRESSION: 1. No acute cardiopulmonary disease. Reviewed, dictated and finalized at location E.
--- NOTE | ~2023-09-12 | CT_ITS ---
EXAMINATION: CT cervical spine wo con DATE: 09/12/2023 15:04 INDICATION: Cervical radiculopathy. Right arm pain. TECHNIQUE: Computed tomography (CT) of the cervical spine was performed without intravenous contrast. Automated exposure control and iterative reconstruction technique were employed. The dose-length pro duct was 560.10 mGy-cm. COMPARISON: None FINDINGS: There is a left otomastoid effusion. There is mild kyphosis of cervical spine. There is 8 d egrees levocurvature of the cervicothoracic spine. Vertebral body heights are normal. There is mildly decreased disc height at C5-C6. The following disc levels are specifically discussed: C2-C3: There is no uncovertebral joint osteoarthritis. There is no facet joint osteoarthritis. There is no neural foraminal stenosis. There is no central canal stenosis. C3-C4: There is no uncovertebral joint osteoarthritis. There is mild bilateral facet joint osteoarthr itis. There is no neural foraminal stenosis. There is no central canal stenosis. C4-C5: There is no uncovertebral joint osteoarthritis. There is no facet joint osteoarthritis. There is no neural foraminal stenosis. There is no central canal stenosis. C5-C6: There is no uncovertebral joint osteoarthritis. There is no facet joint osteoarthritis. There is no neural foraminal stenosis. There is no central canal stenosis. C6-C7: There is no uncovertebral joint osteoarthritis. There is no facet joint osteoarthritis. There is no neural foraminal stenosis. There is no central canal stenosis. C7-T1: There is no uncovertebral joint osteoarthritis. There is mild bilateral facet joint osteoarthr itis. There is no neural foraminal stenosis. There is no central canal stenosis. IMPRESSION: 1. Mild cervical spondylosis. Reviewed, dictated and finalized at location E.
--- NOTE | ~2023-09-12 | XR_ITS ---
EXAMINATION: XR shoulder RT min 2V DATE: 09/12/2023 15:01 INDICATION: Right shoulder pain. TECHNIQUE: 4 views of right shoulder were obtained. COMPARISON: None. FINDINGS: Bone alignment normal. No fracture. Glenohumeral joint is normal. There is mild acromioclav icular joint osteoarthritis. IMPRESSION: 1. Mild right acromioclavicular joint osteoarthritis. Reviewed, dictated and finalized at location E.
[2023-09-12 14:12] VITALS: BP 128/83; PULSE 100; RESP 20; TEMP 37.1; O2SAT 98
--- NOTE | 2023-09-12 14:22 | ED.UPPEXIN ---
HPI - Extremity Injury (Upper) General Chief Complaint: Extremity Injury, Upper Stated Complaint: right shoulder pain Time Seen by Provider: 09/12/23 14:08 Source: patient Mode of arrival: ambulatory Limitations: no limitations History of Present Illness HPI narrative: 33 years old white female came to the emergency room from home by private car complaining of pain at the right shoulder started 4-5 weeks ago, intermittent, worse with certain movement and laying down flat. Patient denies any trauma. 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 She denies any headache or neck pain or recent trauma, fever, chills, nausea vomiting, chest pain, weakness the upper or lower extremities. Patient reported the pain at the right shoulder radiate down to her hand causing some numbness of the right thumb. Related Data Home Medications Medication Instructions Recorded Confirmed amitriptyline 50 mg tablet 50 mg PO HS 10/10/19 03/05/23 atorvastatin 20 mg tablet 20 mg PO DAILY 10/10/19 03/05/23 citalopram 20 mg tablet 20 mg PO DAILY 10/10/19 03/05/23 desogestrel-e.estradiol 0.15 1 tablet PO DAILY 10/10/19 03/05/23 mg-0.02 mg(21)/e.estrad 0.01 mg(5) tablet (Azurette (28)) sumatriptan succinate 100 mg tablet 100 mg PO DAILY 10/10/19 03/05/23 Allergies Allergy/AdvReac Type Severity Reaction Status Date / Time No Known Allergies Allergy Mild Verified 08/17/23 08:05 Review of Systems Review of Systems: All systems reviewed & are unremarkable except as noted in HPI and below PMFSH Past Medical History Medical History Depression Healthy female HLD (hyperlipidemia) Migraine Substance abuse Surgical History Surgical History No history of previous surgery Social History Social History Smoking status: Former smoker Substance use: unknown Substance use type: marijuana, amphetamines and opiates Living arrangements: with family Occupation/Education: occupation 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 Chest and respiratory: Airway patent, no respiratory distress, no accessory muscle use Heart: Regular rate/rhythm Abdomen: Soft, nontender, no organomegaly, quiet bowel sounds Vascular: Normal peripheral pulses, normal capillary refill. Musculoskeletal: Right shoulder exam showed diffuse tenderness mainly anteriorly, slight swelling, no rash. Patient able to abduct right upper extremity up to 145 degree with pain. 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
[2023-09-12] MEDS: IBUPROFEN 400 MG TABLET 800 MG PO (14:45)
[2023-09-12] MEDS: ACETAMINOPHEN 500 MG TABLET 1000 MG PO (14:45)
== END 2023-09-12 15:30 | disposition home or self-care (01) ==
PROVIDERS: Emergency Provider Emergency Medicine
DX: M77.8 Other enthesopathies, not elsewhere classified (principal); E78.5 Hyperlipidemia, unspecified; F32.A Depression, unspecified; M19.011 Primary osteoarthritis, right shoulder; M47.812 Spondylosis without myelopathy or radiculopathy, cervical region; Z87.891 Personal history of nicotine dependence
CPT/HCPCS: 71045; 72125; 73030; 99284; A9270

== ENCOUNTER 2024-06-28 11:45 | Emergency (ER) | payer OTHER, SELFPAY ==
[2024-06-28 11:45] VITALS: BP 126/71; PULSE 90; RESP 16; TEMP 36.6; O2SAT 98
[2024-06-28 11:50] VITALS: O2SAT 99
--- NOTE | 2024-06-28 12:01 | ED.URI ---
HPI - URI/Sore Throat General Chief Complaint: Upper Respiratory Infection Stated Complaint: URI Time Seen by Provider: 06/28/24 12:01 Source: patient Mode of arrival: ambulatory Limitations: no limitations History of Present Illness HPI Narrative: 34-year-old female with a history of depression, migraine, dyslipidemia, substance use presents to the ED with a 3 week history of -- sore throat -- right ear pain. she had some discharge a few days ago. -- nasal congestion/ Sinus fullness -- cough which is productive of mucoid / mucopurulent sputum. she has a history of vaping MD elicited complaint: cough, sore throat, rhinorrhea, nasal congestion and sinus pain Onset (ago): week(s) ( 3 weeks) Consistency: constant Severity: mild Description of mucous: clear Able to tolerate fluids by mouth: Yes Exacerbating factors: nothing Relieving factors: nothing Associated symptoms: denies other symptoms, rhinorrhea, nasal congestion, sore throat, cough and ear pain Treatments prior to arrival: none Related Data Home Medications ?Medication ?Instructions ?Recorded ?Confirmed ?Last Taken ?Type amitriptyline 50 mg tablet 50 mg PO HS 10/10/19 03/05/23 Unknown History atorvastatin 20 mg tablet 20 mg PO DAILY 10/10/19 03/05/23 Unknown History citalopram 20 mg tablet 20 mg PO DAILY 10/10/19 03/05/23 Unknown History desogestrel-e.estradiol 0.15 1 tablet PO DAILY 10/10/19 03/05/23 Unknown History mg-0.02 mg(21)/e.estrad 0.01 mg(5) tablet (Yamilka (28)) sumatriptan succinate 100 mg tablet 100 mg PO DAILY 10/10/19 03/05/23 Unknown History Allergies Allergy/AdvReac Type Severity Reaction Status Date / Time No Known Allergies Allergy Mild Verified 06/28/24 11:52 Review of Systems Review of Systems: All systems reviewed & are unremarkable except as noted in HPI and below PMFSH Past Medical History Medical History Migraine HLD (hyperlipidemia) Depression Substance abuse Healthy female Surgical History Surgical History No history of previous surgery Social History Social History Smoking status: Former smoker Substance use: unknown Substance use type: marijuana, amphetamines and opiates Living arrangements: with family Occupation/Education: occupation 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 Gender identity (if verbalized by the patient): Female Exam Const: General: healthy appearing Orientation/consciousness: patient oriented x3 Limitations: no limitations HENMT: Head: normal to inspection Ears: external ears normal, TM's normal bilaterally ( bilateral tympanic membrane is intact without any erythema.) and EAC's normal Face/Nose/Sinus: Normal external nose present Face and sinus: normal facial exam and sinuses nontender Throat: posterior oropharynx normal Eyes: Conjunctivae: conjunctivae normal Pupils: Equal, round and reactive pupils present EOM: EOMs intact bilaterally Direct Ophthalmoscopy: no photophobia Neck: Neck: normal visual inspection, no lymphadenopathy and no meningeal signs Resp: Effort & Inspection: normal respiratory effort Auscultation: diminished lung sounds Cardio: Rate: regular rate Rhythm: regular rhythm GI: GI Palp: Yes Soft to palpation Auscultation: normal bowel sounds Other: No tenderness/ rigidity /rebound Back/Spine/Pelvis: Back: no CVA tenderness Skin: General skin exam: normal color Rashes: no rashes Wounds: no wounds Neuro: General: patient oriented x3, moves all extremities, no meningeal signs, no focal motor deficits and CN's II-XI intact bilaterally Cranial nerves: Yes Nystagmus not present Speech: normal speech Gait exam (Neuro): Normal gait present Extrem: General: normal to inspection and no clubbing, cyanosis or edema Psych: Mental Status: mental status grossly normal Affect: normal affect Attitude: cooperative Course Course Emergency Course: upper respiratory tract infection=-- tested negative for influenza/ RSV / COVID and strep. right ear pain sinusitis Vital Signs Vital signs: Vital Signs Temperature 36.6 C 06/28/24 11:45 Pulse Rate 90 06/28/24 11:45 Respiratory Rate 16 06/28/24 11:45 Blood Pressure 126/71 06/28/24 11:45 Pulse Oximetry 98 06/28/24 11:45 Oxygen Delivery Room Air 06/28/24 11:45 Temperature 36.6 C 06/28/24 11:45 Pulse Rate 90 06/28/24 11:45 Respiratory Rate 16 06/28/24 11:45 Blood Pressure 126/71 06/28/24 11:45 Pulse Oximetry 99 06/28/24 11:50 Oxygen Delivery Room Air 06/28/24 11:50 MDM - URI/Sore Throat MDM Narrative Medical decision making narrative: Sinusitis right ear pain Differential Diagnosis Differential diagnosis: Likely otitis media, viral infection and influenza Medical Records Attestation: I reviewed the patient's medical records. Lab Data Attestation: I reviewed the patient's lab results. Labs: Lab Results 06/28/24 Range/Units 12:00 Influenza A (RT-PCR) Negative (Negative) Influenza B (RT-PCR) Negative (Negative) RSV (RT-PCR) Negative (Negative) SARS-CoV-2 RNA (RT-PCR) Negative (Negative) Group A Strep (PCR) Not detected (Negative) Discharge Plan Discharge Clinical Impression: Ear pain, right Sinusitis Qualifiers: Sinusitis location: unspecified location Chronicity: acute Recurrence: non-recurrent Qualified Code(s): J01.90 - Acute sinusitis, unspecified Patient Disposition: Home, Self-Care Condition: Stable Instructions: Antibiotic Form, Sinusitis (ED), Earache (ED) Patient Language: Nigerian Prescriptions: New azithromycin [Zithromax] 250 mg tablet See Rx Instructions .ROUTE .COMPLEX Qty: 6 0RF Rx Instructions: For 250 mg dose pack: take 500 mg today (day 1), then 250 mg for 4 days (days 2-5) loratadine [Claritin] 10 mg tablet 10 mg PO DAILY Qty: 10 0RF No Action atorvastatin 20 mg tablet 20 mg PO DAILY sumatriptan succinate 100 mg tablet 100 mg PO DAILY desog-e.estradiol/e.estradiol [Yamilka (28)] 0.15-0.02 mgx21 /0.01 mg x 5 tablet 1 tablet PO DAILY amitriptyline 50 mg tablet 50 mg PO HS citalopram 20 mg tablet 20 mg PO DAILY lorazepam 1 mg Tablet 1 mg PO Q4HR PRN (Reason: Anxiety) Qty: 5 0RF diclofenac sodium 75 mg tablet,delayed release (DR/EC) 75 mg PO BID PRN (Reason: pain) Qty: 20 0RF Follow-up/Referrals: UNKNOWN,DOCTOR [Non-Staff] - Time of Disposition: 12:50
--- OUTSIDE RECORDS SUMMARY | 2024-06-28 12:20 | XMS_ITS | Data Portability ---
Author Organization [facility] Address [address] [place] [address] Assessment No assessment recorded. Plan of Treatment Reminders Order Date Submit Date Provider Last Modified By Organization Details Last Modified Time Details Appointments None recorded. Lab magnesium , serum or plasma 2021 [facility], [address] [place], [place] [address]shyann Guillermo, [address], [place], [address], 08:11:56 CBC w/ auto diff 2021 [facility], [address] [place] [address], [address], [place], [address], 08:11:55 CMP, serum or plasma 2021 [facility], [address] [place] [address], [facility] [address], [place], [address], 2 08:11:56 TSH + free T4, serum 2021 [facility], [address] [place], [place] [address]erika Guillermo, [address], [place], [address], 08:11:54 drug screen, urine 2021 [facility] In-Office Order, Internal Use Only DO Not Attach Compendium DO Not Attach Compendium, Do Not Delete/merge, [id number] 08/09/202 2 17:05:58 HbA1c (hemoglob in A1c), blood 2023 024 [email or web address] [facility], [address] [facility], [address], [place], [address], 4 12:46:30 lipid panel, serum 2023 024 [facility], [address] [facility] [address], [address], [place], [address], 4 07:14:34 TSH, ultra-sen sitive, serum 2023 024 [facility], [address] [place] [address] [address], [address], [place], [address], 4 07:14:36 CMP, serum or plasma 2023 024 [facility], [address] [place] [address] [address], [address], [place], [address], 4 07:14:35 vaginal pathogens panel, JOSE E+probe , vaginal fluid 2023 024 [facility], [address] [facility] [address], [address], [place], [address], 4 06:08:12 RPR (rapid plasma reagin), serum 2023 024 [facility], [address] [place] [address] [address], [address], [place], [address], 4 06:17:33 unlisted lab - HBsAg+hcv ab+HIV+TP abs 2023 024 [facility], [address] [facility] [address], [address], [place], [address], 4 06:17:32 hsv (1+2) igg, serum 2023 024 [facility], [address] [facility], [address], [place], [address], 4 07:14:34 test, urine 2023 024 [email or web address] In-Office Order, Internal Use Only DO Not Attach Compendium DO Not Attach Compendium, Do Not Delete/merge, [id number] 4 14:27:46 urinalysi s, dipstick 2023 024 [email or web address] In-Office Order, Internal Use Only DO Not Attach Compendium DO Not Attach Compendium, Do Not Delete/merge, [id number] 4 14:27:43 pap, IG + HPV 2023 024 [facility], [address] [facility], [address], [place], [address], 4 19:08:35 Referral None recorded. Procedures None recorded. Surgeries None recorded. Imaging holter monitor [address]), [address] [place] [address], [address], 2 14:21:36 Medication Orders duloxetin e 30 mg capsule,d elayed release 2021 022 [email or web address] [facility][id number], [address] [place], [place], [id number], 4 12:10:47 duloxetin e 60 mg capsule,d elayed release [address] [id number], [address] [place], [place], [id number], 2 17:35:45 quetiapin e 25 mg tablet 2021 022 [email or web address] [facility] #[id number], [address] [facility], [place], [place], [id number], 4 12:11:20 atorvasta tin 20 mg tablet 2023 024 [facility] #[id number], [address] [facility], [place], [place], [id number], 14:27:42 Patient TargetsNo targets recorded. Patient Instructions Encounter Date Encounter Id Patient Instructions Last Modified By Organization Details Last Modified Time 12/23/2021 [id number] A healthy lifestyle: care instructions [email or web address] Not available 12/23/2021 16:03:05 palpitations: care instructions [email or web address] Not available 12/23/2021 16:03:04 anxiety disorder : care instructions [email or web address] Not available 12/23/2021 16:03:04 01/07/2024 [id number] When You Want to Lose Weight: Care Instructions [email or web address] Not available 01/07/2024 14:27:38 high cholesterol : care instructions [email or web address] Not available 01/07/2024 14:27:38 On the date of this encounter, I saw and examined the patient, personally verifying the wong and critical findings in the resident s note. I reviewed and agree with the resident/fellow s findings and plan. ~MD Jae [email or web address] Not available 01/18/2024 08:42:26 Reason for Referral None Reported. Results Created Date Observation Date Name Description Value Unit Range Abnormal Flag Note LastModifiedBy Organization Detail LastModifiedTime 12/24/1912/25/2021 TSH+F REE T4 TSH 2.480 uIU/m L 0.450- 4.500 Not Available [facility] ([facility]) [address] [facility], [place], [address], 12/25/2021 08:11:54 12/24/19 22 12/25/2021 TSH+F REE T4 T4,free(dire ct) 0.92 NG/dL 0.82-1 .77 Not Available [facility] ([facility]) [address] [facility], [place], [address], 12/25/2021 08:11:54 12/24/19 22 12/25/2021 CBC WITH DIFFE RENTI AL/PL ATELE T WBC 6.4 x10e3 /uL 3.4-10 .8 Not Available [facility] ([facility]) [address] [facility], [place], [address], 12/25/2021 08:11:55 12/24/19 22 12/25/2021 CBC WITH DIFFE RENTI AL/PL ATELE T RBC 4.18 x10e6 /uL 3.77-5 .28 Not Available [facility] ([facility]) [address] [facility], [place], [address], 12/25/2021 08:11:55 12/24/19 22 12/25/2021 CBC WITH DIFFE RENTI AL/PL ATELE T hemoglobin 11.8 g/dL 11.1-1 5.9 Not Available [facility] ([facility]) [address] [facility], [place], [address], 12/25/2021 08:11:55 12/24/19 22 12/25/2021 CBC WITH DIFFE RENTI AL/PL ATELE T hematocrit 35.9 % 34.0-4 6.6 Not Available [facility] ([facility]) [address] [facility], [place], [address], 12/25/2021 08:11:55 12/24/19 22 12/25/2021 CBC WITH DIFFE RENTI AL/PL ATELE T MCV 86 fL 79-97 Not Available [facility] ([facility]) [address] [facility], [place], [address], 12/25/2021 08:11:55 12/24/19 22 12/25/2021 CBC WITH DIFFE RENTI AL/PL ATELE T MCH 28.2 pg 26.6-3 3.0 Not Available [facility] ([facility]) [address] [facility], [place], [address], 12/25/2021 08:11:55 12/24/19 22 12/25/2021 CBC WITH DIFFE RENTI AL/PL ATELE T MCHC 32.9 g/dL 31.5-3 5.7 Not Available [facility] ([facility]) [address] [facility], [place], [address], 12/25/2021 08:11:55 12/24/19 22 12/25/2021 CBC WITH DIFFE RENTI AL/PL ATELE T RDW 14.2 % 11.7-1 5.4 Not Available [facility] ([facility]) [address] [facility], [place], [address], 12/25/2021 08:11:55 12/24/19 22 12/25/2021 CBC WITH DIFFE RENTI AL/PL ATELE T platelets 272 x10e3 /uL 150-45 0 Not Available [facility] ([facility]) [address] [facility], [place], [address], 12/25/2021 08:11:55 12/24/19 22 12/25/2021 CBC WITH DIFFE RENTI AL/PL ATELE T neutrophils 40 % not estab. Not Available [facility] ([facility]) [address] [place], [address], 12/25/2021 08:11:55 12/24/19 22 12/25/2021 CBC WITH DIFFE RENTI AL/PL ATELE T lymphs 44 % not estab. Not Available [facility] ([facility]) [address] [place], [address], 12/25/2021 08:11:55 12/24/19 22 12/25/2021 CBC WITH DIFFE RENTI AL/PL ATELE T monocytes 8 % not estab. Not Available [facility] ([facility]) [address] [place], [address], 12/25/2021 08:11:55 12/24/19 22 12/25/2021 CBC WITH DIFFE RENTI AL/PL ATELE T eos 6 % not estab. Not Available [facility] ([facility]) [address] [facility], [place], [address], 12/25/2021 08:11:55 12/24/19 22 12/25/2021 CBC WITH DIFFE RENTI AL/PL ATELE T basos 1 % not estab. Not Available [facility] ([facility]) [address] [place], [address], 12/25/2021 08:11:55 12/24/19 22 12/25/2021 CBC WITH DIFFE RENTI AL/PL ATELE T immature cells CLOTH COVERER Not Available [facility] ([facility]) [address] [place], [address], 12/25/2021 08:11:55 12/24/19 22 12/25/2021 CBC WITH DIFFE RENTI AL/PL ATELE T neutrophils (absolute) 2.6 x10e3 /uL 1.4-7. 0 Not Available [facility] ([facility]) [address] [place], [address], 12/25/2021 08:11:55 12/24/19 22 12/25/2021 CBC WITH DIFFE RENTI AL/PL ATELE T lymphs (absolute) 2.8 x10e3 /uL 0.7-3. 1 Not Available [facility] ([facility]) [address] [place], [address], 12/25/2021 08:11:55 12/24/19 22 12/25/2021 CBC WITH DIFFE RENTI AL/PL ATELE T monocytes(ab solute) 0.5 x10e3 /uL 0.1-0. 9 Not Available [facility] ([facility]) [address] [place], [address], 12/25/2021 08:11:55 12/24/19 22 12/25/2021 CBC WITH DIFFE RENTI AL/PL ATELE T eos (absolute) 0.4 x10e3 /uL 0.0-0. 4 Not Available [facility] ([facility]) [address] [facility], [place], [address], 12/25/2021 08:11:55 12/24/19 22 12/25/2021 CBC WITH DIFFE RENTI AL/PL ATELE T baso (absolute) 0.1 x10e3 /uL 0.0-0. 2 Not Available [facility] ([facility]) [address] [facility], [place], [address], 12/25/2021 08:11:55 12/24/19 22 12/25/2021 CBC WITH DIFFE RENTI AL/PL ATELE T immature granulocytes 1 % not estab. Not Available [facility] ([facility]) [address] [facility], [place], [address], 12/25/2021 08:11:55 12/24/19 22 12/25/2021 CBC WITH DIFFE RENTI AL/PL ATELE T immature grans (abs) 0.1 x10e3 /uL 0.0-0. 1 Not Available [facility] ([facility]) [address] [place], [address], 12/25/2021 08:11:55 12/24/19 22 12/25/2021 CBC WITH DIFFE RENTI AL/PL ATELE T NRBC CLOTH COVERER Not Available [facility] ([facility]) [address] [place], [address], 12/25/2021 08:11:55 12/24/19 22 12/25/2021 CBC WITH DIFFE RENTI AL/PL ATELE T hematology comments: CLOTH COVERER Not Available [facility] ([facility]) [address] [place], [address], 12/25/2021 08:11:55 12/24/19 22 12/25/2021 COMP. METAB OLIC PANEL (14) glucose 72 mg/dL 65-99 Not Available [facility] ([facility]) [address] [place], [address], 12/25/2021 08:11:56 12/24/19 22 12/25/2021 COMP. METAB OLIC PANEL (14) BUN 13 mg/dL 6-20 Not Available [facility] ([facility]) [address] [place], [address], 12/25/2021 08:11:56 12/24/19 22 12/25/2021 COMP. METAB OLIC PANEL (14) creatinine 0.82 mg/dL 0.57-1 .00 Not Available [facility] ([facility]) [address] [place], [address], 12/25/2021 08:11:56 12/24/19 22 12/25/2021 COMP. METAB OLIC PANEL (14) eGFR 97 mL/mi n/1.7 3 >59 Not Available [facility] ([facility]) [address] [place], [address], 12/25/2021 08:11:56 12/24/19 22 12/25/2021 COMP. METAB OLIC PANEL (14) BUN/creatini ne ratio 16 9-23 Not Available [facility] ([facility]) [address] [place], [address], 12/25/2021 08:11:56 12/24/19 22 12/25/2021 COMP. METAB OLIC PANEL (14) sodium 138 mmol/ L 134-14 4 Not Available [facility] ([facility]) [address] [place], [address], 12/25/2021 08:11:56 12/24/19 22 12/25/2021 COMP. METAB OLIC PANEL (14) potassium 4.0 mmol/ L 3.5-5. 2 Not Available [facility] ([facility]) [address] [facility] [place], [address], 12/25/2021 08:11:56 12/24/19 22 12/25/2021 COMP. METAB OLIC PANEL (14) chloride 98 mmol/ L 96-106 Not Available [facility] ([facility] [address] [place], [address], 12/25/2021 08:11:56 12/24/19 22 12/25/2021 COMP. METAB OLIC PANEL (14) carbon dioxide, total 26 mmol/ L 20-29 Not Available [facility] ([facility] [address] [place] [place], [address], 12/25/2021 08:11:56 12/24/19 22 12/25/2021 COMP. METAB OLIC PANEL (14) calcium 9.5 mg/dL 8.7-10 .2 Not Available [facility] ([facility]) [address] [facility] [place], [address], 12/25/2021 08:11:56 12/24/19 22 12/25/2021 COMP. METAB OLIC PANEL (14) protein, total 7.1 g/dL 6.0-8. 5 Not Available [facility] ([facility]) [address] [facility] [place], [address], 12/25/2021 08:11:56 12/24/19 22 12/25/2021 COMP. METAB OLIC PANEL (14) albumin 4.6 g/dL 3.8-4. 8 Not Available [facility] ([facility]) [address] [facility] [place], [address], 12/25/2021 08:11:56 12/24/19 22 12/25/2021 COMP. METAB OLIC PANEL (14) globulin, total 2.5 g/dL 1.5-4. 5 Not Available [facility] ([facility]) [address] [place], [address], 12/25/2021 08:11:56 12/24/19 22 12/25/2021 COMP. METAB OLIC PANEL (14) A/G ratio 1.8 1.2-2. 2 Not Available [facility] ([facility]) [address] [place], [address], 12/25/2021 08:11:56 12/24/19 22 12/25/2021 COMP. METAB OLIC PANEL (14) bilirubin, total 0.3 mg/dL 0.0-1. 2 Not Available [facility] ([facility]) [address] [facility] [place], [address], 12/25/2021 08:11:56 12/24/19 22 12/25/2021 COMP. METAB OLIC PANEL (14) alkaline phosphatase 70 IU/L 44-121 Not Available [facility] [address] [facility] [place], [address], 12/25/2021 08:11:56 12/24/19 22 12/25/2021 COMP. METAB OLIC PANEL (14) AST (SGOT) 19 IU/L 0-40 Not Available [facility] ([facility] [address] [facility] [place], [address], 12/25/2021 08:11:56 12/24/19 22 12/25/2021 COMP. METAB OLIC PANEL (14) ALT (SGPT) 10 IU/L 0-32 Not Available [facility] ([facility] [address] [facility] [place], [address], 12/25/2021 08:11:56 12/24/19 22 12/25/2021 MAGNE SIUM magnesium 1.8 mg/dL 1.6-2. 3 Not Available [facility] ([facility]) [address] [facility] [place], [address], 12/25/2021 08:11:56 12/24/19 22 12/23/2021 drug scree n, urine THC Positi ve Not Available In-Office Order Internal Use Only DO Not Attach Compendium DO Not Attach Compendium, Do Not Delete/merge, [id number] 12/23/2021 15:53:11 12/24/19 22 12/23/2021 drug scree n, urine Cocaine (Br[place]) Negati ve Not Available In-Office Order Internal Use Only DO Not Attach Compendium DO Not Attach Compendium, Do Not Delete/merge, 12/23/2021 15:53:11 12/24/19 22 12/23/2021 drug scree n, urine Amphetamines (amp) Negati ve Not Available In-Office Order Internal Use Only DO Not Attach Compendium DO Not Attach Compendium, Do Not Delete/merge, 12/23/2021 15:53:11 12/24/19 22 12/23/2021 drug scree n, urine Opiates (opi) Negati ve Not Available In-Office Order Internal Use Only DO Not Attach Compendium DO Not Attach Compendium, Do Not Delete/merge, [id number] 12/23/2021 15:53:11 12/24/19 22 12/23/2021 drug scree n, urine Phencyclidin e (PCP) Negati ve Not Available In-Office Order Internal Use Only DO Not Attach Compendium DO Not Attach Compendium, Do Not Delete/merge, 12/23/2021 15:53:11 12/24/19 22 12/23/2021 drug scree n, urine Benzodiazepi ne (bzo) Negati ve Not Available In-Office Order Internal Use Only DO Not Attach Compendium DO Not Attach Compendium, Do Not Delete/merge, 12/23/2021 15:53:11 12/24/19 22 12/23/2021 drug scree n, urine Methadone (mtd) Negati ve Not Available In-Office Order Internal Use Only DO Not Attach Compendium DO Not Attach Compendium, Do Not Delete/merge, 12/23/2021 15:53:11 08/09/12/23/2021 drug scree n, urine Buprenorphin e (bup) Positi ve Not Available In-Office Order Internal Use Only DO Not Attach Compendium DO Not Attach Compendium, Do Not Delete/merge, [id number] 12/23/2021 15:53:11 12/24/19 22 12/23/2021 drug scree n, urine Oxycodone (oxy) Negati ve Not Available In-Office Order Internal Use Only DO Not Attach Compendium DO Not Attach Compendium, Do Not Delete/merge, [id number] 12/23/2021 15:53:11 12/24/19 22 12/23/2021 drug scree n, urine Barbiturates (bar) Negati ve Not Available In-Office Order Internal Use Only DO Not Attach Compendium DO Not Attach Compendium, Do Not Delete/merge, [id number] 12/23/2021 15:53:11 12/24/19 22 12/23/2021 drug scree n, urine Tricyclic Antidepressa nts (TCA) Negati ve Not Available In-Office Order Internal Use Only DO Not Attach Compendium DO Not Attach Compendium, Do Not Delete/merge, [id number] 12/23/2021 15:53:11 12/24/19 22 12/23/2021 drug scree n, urine MDMA (ecstasy) Negati ve Not Available In-Office Order Internal Use Only DO Not Attach Compendium DO Not Attach Compendium, Do Not Delete/merge, [id number] 12/23/2021 15:53:11 01/07/20 24 01/08/2024 HSV 1 AND 2 AB, IGG hsv 1 IgG, type spec <0.91 Negat remi <0.91 Equiv ocal 0.91 - 1.09 Posit remi >1.09 Note: Negat remi indic ates no antib odies detec keith to HSV-1 . Equiv ocal may sugge st early infec tion. If clini anny appro priat e, retes t at later date. Posit remi indic ates antib odies detec keith to HSV-1 . Not Available [facility] ([facility]) [address], [place], [address], 01/08/2024 07:14:34 01/07/20 24 01/08/2024 HSV 1 AND 2 AB, IGG hsv 2 IgG, type spec 1.67 index 0.00-0 .90 above high normal Negat remi <0.91 Equiv ocal 0.91 - 1.09 Posit remi >1.09 HSV-2 Antib cole Inter preta tion: Curre nt guide lines and recom menda tions do not recom mend routi ne scree tenzin for HSV-2 in asymp tomat ic indiv idual s, inclu ding those that are pregn ant. A negat remi antib cole resul t indic ates no detec table antib odies to HSV-2 were found . If recen t expos ure is suspe cted, retes t in 4 to 6 weeks . Equiv ocal sampl es shoul d be retes keith in 4 to 6 weeks . A posit remi resul t indic ates the prese nce of detec table IgG antib cole to HSV-2 . FALSE POSIT REMI RESUL TS MAY OCCUR . Repea t testi ng, or testi ng by a diffe penelopet guilherme boyd, may be indic ated in some setti ngs (e.g. patie nts with low likel ihood of HSV infec tion) . If clini anny appro priat e, retes t 4 to 6 weeks later . HSV-2 IgG antib cole testi ng resul ts shoul d be clini anny corre lated . Not Available [facility] ([facility]) [address] [facility], [place], [address], 01/08/2024 07:14:34 01/07/2001/08/2024 LIPID PANEL cholesterol, total 270 mg/dL 100-19 9 above high normal Not Available [facility] ([facility]) [address] [facility], [place], [address], 01/08/2024 07:14:34 01/07/20 24 01/08/2024 LIPID PANEL triglyceride s 126 mg/dL 0-149 Not Available [facility] [address] [facility], [place], [address], 01/08/2024 07:14:34 01/07/20 24 01/08/2024 LIPID PANEL HDL cholesterol 42 mg/dL >39 Not Available [facility] [address] [place], [address], 01/08/2024 07:14:34 01/07/20 24 01/08/2024 LIPID PANEL VLDL cholesterol sowmya 23 mg/dL 5-40 Not Available [facility] [address] [facility], [place], [address], 01/08/2024 07:14:34 01/07/20 24 01/08/2024 LIPID PANEL LDL chol calc ([facility]) 205 mg/dL 0-99 above high normal Not Available [facility] ([facility] [address] [facility], [place], [address], 01/08/2024 07:14:34 01/07/20 24 01/08/2024 LIPID PANEL LDL calc comment: COMMEN T Consi micki evalu ating for Famil ial Hyper vianca stero lemia (FH), if clini anny indic ated. Not Available [facility] ([facility]) [address] [place], [address], 01/08/2024 07:14:34 01/07/20 24 01/08/2024 COMP. METAB OLIC PANEL (14) glucose 101 mg/dL 70-99 above high normal Not Available [facility] ([facility]) [address] [place], [address], 01/08/2024 07:14:35 01/07/20 24 01/08/2024 COMP. METAB OLIC PANEL (14) BUN 9 mg/dL 6-20 Not Available [facility] ([facility]) [address] [place], [address], 01/08/2024 07:14:35 01/07/20 24 01/08/2024 COMP. METAB OLIC PANEL (14) creatinine 0.74 mg/dL 0.57-1 .00 Not Available [facility] ([facility] [address] [facility], [place], [address], 01/08/2024 07:14:35 01/07/20 24 01/08/2024 COMP. METAB OLIC PANEL (14) eGFR 109 mL/mi n/1.7 3 >59 Not Available [facility] ([facility]) [address] [facility], [place], [address], 01/08/2024 07:14:35 01/07/20 24 01/08/2024 COMP. METAB OLIC PANEL (14) BUN/creatini ne ratio 12 - Not Available [facility] [address] [facility] [place], [address], 01/08/2024 07:14:35 01/07/20 24 01/08/2024 COMP. METAB OLIC PANEL (14) sodium 137 mmol/ L 134-14 4 Not Available [facility] ([facility] [address] [facility], [place], [address], 01/08/2024 07:14:35 01/07/20 24 01/08/2024 COMP. METAB OLIC PANEL (14) potassium 4.1 mmol/ L 3.5-5. 2 Not Available [facility] ([facility] [address] [facility], [place], [address], 01/08/2024 07:14:35 01/07/20 24 01/08/2024 COMP. METAB OLIC PANEL (14) chloride 99 mmol/ L 96-106 Not Available [facility] ([facility] [address] [place], [address], 01/08/2024 07:14:35 01/07/20 24 01/08/2024 COMP. METAB OLIC PANEL (14) carbon dioxide, total 21 mmol/ L 20-29 Not Available [facility] ([facility] [address] [facility], [place], [address], 01/08/2024 07:14:35 01/07/20 24 01/08/2024 COMP. METAB OLIC PANEL (14) calcium 9.2 mg/dL 8.7-10 .2 Not Available [facility] ([facility] [address] [facility], [place], [address], 01/08/2024 07:14:35 01/07/20 24 01/08/2024 COMP. METAB OLIC PANEL (14) protein, total 6.9 g/dL 6.0-8. 5 Not Available [facility] ([facility] [address] [facility], [place], [address], 01/08/2024 07:14:35 01/07/20 24 01/08/2024 COMP. METAB OLIC PANEL (14) albumin 4.4 g/dL 3.9-4. 9 Not Available [facility] ([facility] [address] [facility], [place], [address], 01/08/2024 07:14:35 01/07/20 24 01/08/2024 COMP. METAB OLIC PANEL (14) globulin, total 2.5 g/dL 1.5-4. 5 Not Available [facility] ([facility]) [address] [facility], [place], [address], 01/08/2024 07:14:35 01/07/20 24 01/08/2024 COMP. METAB OLIC PANEL (14) bilirubin, total 0.3 mg/dL 0.0-1. 2 Not Available [facility] ([facility] [address] [facility] [place], [address], 01/08/2024 07:14:35 01/07/20 24 01/08/2024 COMP. METAB OLIC PANEL (14) alkaline phosphatase 81 IU/L 44-121 Not Available [facility] [address] [facility] [place], [address], 01/08/2024 07:14:35 01/07/20 24 01/08/2024 COMP. METAB OLIC PANEL (14) AST (SGOT) 15 IU/L 0-40 Not Available [facility] ([facility] [address] [facility], [place], [address], 01/08/2024 07:14:35 01/07/20 24 01/08/2024 COMP. METAB OLIC PANEL (14) ALT (SGPT) 13 IU/L 0-32 Not Available [facility] ([facility] [address] [facility], [place], [address], 01/08/2024 07:14:35 01/07/2001/08/2024 TSH RFX ON ABNOR MAL TO FREE T4 TSH 0.891 uIU/m L 0.450- 4.500 Not Available [facility] ([facility] [address] [facility], [place], [address], 01/08/2024 07:14:36 01/07/2001/09/2024 NUSWA B VAGIN ITIS PLUS (VG+) atopobium vaginae HIGH - 2 score abnormal Not Available [facility] ([facility]) [address] [facility], [place], [address], 01/10/2024 06:08:12 01/07/2001/09/2024 NUSWA B VAGIN ITIS PLUS (VG+) bvab 2 HIGH - 2 score abnormal Not Available [facility] ([facility]) [address] [facility], [place], [address], 01/10/2024 06:08:12 01/07/2001/09/2024 NUSWA B VAGIN ITIS PLUS (VG+) megasphaera 1 HIGH - 2 score abnormal Calcu late total score by mary carmen g the 3 indiv idual bacte rial vagin osis (BV) marke r score s toget her. Total score is inter prete d as follo ws: Total score 0-1: Indic ates the absen ce of BV. Total score 2: Indet ermin ate for BV. Addit ional clini sowmya data shoul d be evalu ated to estab jessika a diagn osis. Total score 3-6: Indic ates the prese nce of BV. Not Available [facility] ([facility]) [address] [place], [address], 01/10/2024 06:08:12 01/07/20 24 01/09/2024 NUSWA B VAGIN ITIS PLUS (VG+) gonzalo albicans, JOSE E NEGATI VE negati ve Not Available [facility] ([facility]) [address] [place], [address], 01/10/2024 06:08:12 01/07/20 24 01/09/2024 NUSWA B VAGIN ITIS PLUS (VG+) gonzalo glabrata, JOSE E NEGATI VE negati ve Not Available [facility] ([facility]) [address] [place], [place], [address], 01/10/2024 06:08:12 01/07/20 24 01/10/2024 NUSWA B VAGIN ITIS PLUS (VG+) trich vag by JOSE E NEGATI VE negati ve Not Available [facility] ([facility]) [address] [place], [address], 01/10/2024 06:08:12 01/07/20 24 01/10/2024 NUSWA B VAGIN ITIS PLUS (VG+) chlamydia trachomatis, JOSE E NEGATI VE negati ve Not Available [facility] ([facility]) [address] [place], [address], 01/10/2024 06:08:12 01/07/20 24 01/10/2024 NUSWA B VAGIN ITIS PLUS (VG+) neisseria gonorrhoeae, JOSE E NEGATI VE negati ve Not Available [facility] ([facility]) [address] [place], [address], 01/10/2024 06:08:12 01/07/20 24 01/08/2024 INTER PRETA TION: interpretati on: Commen t Not infec keith with HCV unles s early or acute infec tion is suspe cted (whic h may be delay ed in an immun ocomp romis ed indiv idual ), or other evide nce exist s to indic ate HCV infec tion. Not Available [facility] ([facility]) [address] [facility], [place], [address], 01/11/2024 06:17:31 01/07/2001/08/2024 HBSAG +HCVA B+HIV +TP ABS HBsAg screen NEGATI VE negati ve Not Available [facility] ([facility]) [address] [facility], [place], [address], 01/11/2024 06:17:32 01/07/20 24 01/08/2024 HBSAG +HCVA B+HIV +TP ABS HCV Ab NON REACTI VE nonrea ctive Not Available [facility] ([facility]) [address] [facility], [place], [address], 01/11/2024 06:17:32 01/07/20 24 01/08/2024 HBSAG +HCVA B+HIV +TP ABS HIV Ab/P24 Ag screen NON REACTI VE nonrea ctive HIV-1 /HIV- 2 antib odies and HIV-1 p24 antig en were NOT detec keith. There is no labor atory evide nce of HIV infec tion. HIV Negat remi Not Available [facility] ([facility]) [address] [facility], [place], [address], 01/11/2024 06:17:32 01/07/20 24 01/10/2024 HBSAG +HCVA B+HIV +TP ABS T pallidum antibodies NON REACTI VE nonrea ctive Not Available [facility] ([facility]) [address] [place], [address], 01/11/2024 06:17:32 01/07/20 24 01/08/2024 RPR, RFX QN RPR/C ONFIR M TP RPR NON REACTI VE nonrea ctive Not Available [facility] ([facility]) [address] [facility], [place], [address], 01/11/2024 06:17:33 01/07/20 24 01/11/2024 IGP, APT HPV,R FX 16/18 ,45 diagnosis: MARK KHALIL FOR INTRA EPITH ELIAL LESIO N OR MATEO CAIN . Not Available [facility] ([facility]) [address] [facility], [place],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
[2024-06-28 12:35] LABS: Strep Group A RT-PCR NOT DETECTED (Negative)
[2024-06-28 12:44] LABS: SARS-CoV-2 RNA PCR Negative (Negative)
[2024-06-28 12:45] LABS: Influenza A QL RT-PCR Negative (Negative); Influenza B QL RT-PCR Negative (Negative)
[2024-06-28 12:46] LABS: RSV RNA, RT-PCR Negative (Negative)
[2024-06-28 12:57] VITALS: BP 113/75; PULSE 80; RESP 16; TEMP 37.1; O2SAT 97
== END 2024-06-28 12:57 | disposition home or self-care (01) ==
PROVIDERS: Emergency Provider Internal Medicine Critical Care Medicine
DX: J01.90 Acute sinusitis, unspecified (principal); H92.01 Otalgia, right ear; Z87.891 Personal history of nicotine dependence; Z20.822 Contact with and (suspected) exposure to COVID-19
CPT/HCPCS: 87637; 87651; 99283